=== PATIENT | female | born 1985 | race Caucasian/White ===

== ENCOUNTER 2024-03-13 07:25 | Emergency (ER) | payer BC ==
--- OUTSIDE RECORDS SUMMARY | 2024-03-13 07:29 | XMS REPORT | Continuity of Care Document ---
Author Name Unknown Address [address] [facility] [address] [place] [address] [facility] [address] [facility] [address] [place] [address] Care Team Providers Care Vc++ Developer Name Role Phone Leeanna Espinoza Primary Care Physician [phone] HUMERA DAVIS Attending Clinician Unavailable SWATHI DICKEY Attending Clinician Unavailable LEEANNA LINDER Attending Clinician Unavailable Leeanna Espinoza Attending Clinician [phone] Swathi Dickey MD Attending Clinician [phone] Humera Davis MD Attending Clinician [phone] Lab, Ang - Db Attending Clinician Unavailable Doctor Unassigned, [place] Attending Clinician U JIHAN Reynolds Attending Clinician UnavailJIHAN Gonzalez Attending Clinician UnavailDARSHANA Faria Attending Clinician UnavailDarshana Hdez MD Attending Clinician [phone] HUMERA DAVIS Admitting Clinician Unavailable SWATHI DICKEY Admitting Clinician Unavailable Payers Payer Name Policy Type Policy Number Effective Date Expirati on Date Source [facility] [id number] 2020 00:00:00 Problems Condition Name Condition Details Condition Category Status Onset Date Resolution Date Last Treatment Date Treating Clinician Comments Source S/P breast biopsy, left S/P breast biopsy, left Disease Active 02-05 00:00: [facility] Chest pain, unspecifie d type Chest pain, unspecifie d type Disease Active 2022-11 2 00:00: 00 [facility] Need for immunizati on against influenza Need for immunizati on against influenza Disease Active 2022-11 2 00:00: 00 [facility] Abnormal EKG Abnormal EKG Disease Active 2022-11 00:00: 00 [facility] Dizziness Dizziness Disease Active 2022-11 00:00: 00 [facility] Sesamoidit is of right foot Sesamoidit is of right foot Disease Active 07-02 00:00: 00 [facility] Right foot pain Right foot pain Disease Active 07-02 00:00: 00 [facility] Mild persistent asthma without complicati on Mild persistent asthma without complicati on Disease Active 01-27 00:00: 00 [facility] Need for hepatitis C screening test Need for hepatitis C screening test Disease Active 01-27 00:00: 00 [facility] Acute pain of right shoulder Acute pain of right shoulder Disease Active 2021-11 00:00: 00 [facility] Encounter to establish care Encounter to establish care Disease Active 2021-11 00:00: 00 [facility] Acquired hypothyroi dism Acquired hypothyroi dism Disease Active 2021-11 00:00: 00 [facility] Anxiety Anxiety Disease Active 2021-11 00:00: 00 [facility] Acute pain of right shoulder Acute pain of right shoulder Disease Active 2021-11 00:00: 00 [facility] Allergies, Adverse Reactions, Alerts Allergy Name Allergy Type Status Severity Reaction(s) Onset Date Inactive Date Treating Clinician Comments Source Guaifene sin Propensi ty to adverse reaction s Active Anaphylaxis 2021-11 00:00: 00 [facility] Penicill ins Propensi ty to adverse reaction s Active Hives 2021-11 00:00: 00 [facility] PENICILL INS Drug Class Active Hives 2021-11 00:00: 00 [facility] GUAIFENE SIN DRUG INGREDI Active Anaphylaxis 2021-11 00:00: 00 [facility] ADHESIVE Drug Class Active Unknown-Cmnt 11-11 00:00: 00 [facility] Adhesive Drug Intolera nce Active Unknown - See comments 11-11 00:00: 00 [facility] NO KNOWN ALLERGIE S Drug Class Active [facility] Social History Social Habit Start Date Stop Date Quantity Comments Source Gender identity [facility] intake 2024-02-06 00:00:00 2024-02-06 00:00:00 Ex-drinker (finding) [facility] Alcohol intake 2024-02-06 00:00:00 2024-02-06 00:00:00 Ex-drinker (finding) [facility] History of Social function 2023-07-02 00:00:00 2023-07-02 00:00:00 [facility] Exposure to SARS-CoV-2 (event) 2023-01-17 00:00:00 2023-01-27 07:53:00 Not sure [facility] Alcohol Comment 2022-10-29 00:00:00 2022-10-29 00:00:00 stopped 2016 [facility] Tobacco use and exposure 2022-10-18 00:00:00 2022-10-18 00:00:00 Smokeless tobacco non-user [facility] Sex assigned at 1985 00:00:00 1985 00:00:00 [facility] Smoking Status Start Date Stop Date Source Never smoked tobacco [facility] Tobacco smoking consumption unknown [facility] Medications Ordered Medication Name Filled Medication Name Start Date Stop Date Current Medication? Ordering Clinician Indication Dosage Frequency Signature (SIG) Comments Components Source ONDANSETRON 4 mg tablet 03-12 00:00: 00 Yes [id number] 4mg TAKE ONE (1) TABLET(S) BY MOUTH EVERY EIGHT HOURS NEEDED FOR NAUSEA AND VOMITING. [facility] midodrine 2.5 mg tablet 02-17 00:00: 00 Yes [id number] 2.5mg Take 1 tablet by mouth in the morning and 1 tablet at noon and 1 tablet in the evening. [facility] ondansetron (ZOFRAN) 4 mg tablet 4-10 00:00: 00 02-21 04:59 :00 Yes [id number] 4mg Take 1 tablet by mouth every 8 (eight) hours as needed for Nausea and Vomiting (N/V) for up to 10 days. [facility] topiramate 100 mg tablet 01-29 14:15: 00 Yes 100mg Take 1 tablet by mouth. [facility] QUEtiapine 100 mg tablet 01-29 14:15: 00 Yes 100mg Take 1 tablet by mouth. [facility] fluticasone propionate 110 mcg/actuati on inhaler 01-29 14:15: 00 Yes 1{puff} Inhale 1 Puff. [facility] fexofenadin e 60 mg tablet 01-29 14:15: 00 Yes 60mg Take 1 tablet by mouth. [facility] celecoxib 200 mg capsule 01-29 14:15: 00 Yes 200mg Take 1 capsule by mouth. [facility] buPROPion SR 150 mg SR tablet 01-29 14:15: 00 Yes 150mg Take 1 tablet by mouth. [facility] midodrine 2.5 mg tablet 01-20 00:00: 00 02-17 00:00 :00 No [id number] 2.5mg Take 1 tablet by mouth in the morning and 1 tablet at noon and 1 tablet in the evening. [facility] atogepant (QULIPTA ORAL) 12-03 09:32: 31 12-03 00:00 :00 No 16mg Take 16 mg by mouth in the morning. [facility] QULIPTA 60 mg Tab 1-19 00:00: 00 Yes 1{tbl} Take 1 tablet by mouth in the morning. [facility] atogepant (QULIPTA ORAL) 11-07 09:35: 02 Yes 16mg Take 16 mg by mouth in the morning. [facility] MOUNJARO 7.5 mg/0.5 mL PnIj 11-07 09:34: 08 11-07 00:00 :00 No inject under the skin. [facility] lamoTRIgine 300 mg TR24 11-04 00:00: 00 Yes 1{tbl} Take 1 tablet by mouth in the morning. [facility] VRAYLAR 3 mg Cap 2022-11 00:00: 00 Yes 1{capsu le} Take 1 capsule by mouth in the morning. [facility] MOUNJARO 10 mg/0.5 mL subcutaneou s injection 2022-11 00:00: 00 Yes 10mg inject 10 mg under the skin weekly. [facility] atomoxetine 100 mg capsule 2022-11 00:00: 00 Yes 100mg Take 1 capsule by mouth in the morning. [facility] budesonide- formoteroL (SYMBICORT) 80-4.5 mcg/actuati on inhaler 01-27 00:00: 00 Yes [id number] 2{puff} Inhale 2 Puffs in the morning and 2 Puffs in the evening. [facility] atomoxetine 80 mg capsule 01-25 00:00: 00 11-07 00:00 :00 No [facility] traZODone 50 mg tablet 12-27 00:00: 00 Yes 50mg Take 1 tablet by mouth at bedtime. [facility] triamcinolo ne acetonide (KENALOG) injection 40 mg 11-06 21:00: 00 11-06 19:58 :00 No [id number] 40mg [facility] MOUNJARO 7.5 mg/0.5 mL PnIj 2021-11 08:38: 26 Yes inject under the skin. [facility] MOUNJARO 7.5 mg/0.5 mL PnIj 2021-11 09:14: 01 Yes inject under the skin. [facility] ibuprofen 600 mg tablet 2021-11 00:00: 00 10-17 05:59 :00 No [id number] 600mg Take 1 tablet by mouth every 6 (six) hours as needed for Temp > 38.5 C for up to 14 days. [facility] methylPREDN ISolone (MEDROL, KAREN,) 4 mg tablets 2021-11 00:00: 00 10-08 05:59 :00 No [id number] Take by mouth SEE-INSTRU CTIONS for 5 days. follow package directions [facility] VRAYLAR 1.5 mg Cap 2021-11 00:00: 00 11-07 00:00 :00 No 1{capsu le} Take 1 capsule by mouth daily. [facility] SYMBICORT 80-4.5 mcg/actuati on inhaler 2021-11 00:00: 00 01-27 00:00 :00 No [facility] guanFACINE ER 3 mg tablet 2021-11 00:00: 00 Yes 1{tbl} Take 1 tablet by mouth in the morning. [facility] guanFACINE ER 3 mg tablet 2021-11 00:00: 00 01-27 00:00 :00 No 3mg Take 1 tablet by mouth in the morning. [facility] AJOVY AUTOINJECTO R 225 mg/1.5 mL AtIn 2021-11 00:00: 00 11-07 00:00 :00 No 10mg Take 10 mg by mouth. [facility] lamoTRIgine 150 mg tablet 2021-11 00:00: 00 11-07 00:00 :00 No TAKE TWO (2) TABLET(S) BY MOUTH ONCE A DAY. [facility] propranoloL 10 mg tablet 2021-11 00:00: 00 01-27 00:00 :00 No TAKE 2.5 TABLET(S) BY MOUTH AT BEDTIME. [facility] topiramate 100 mg tablet 2021-11 0 00:00: 00 12-03 00:00 :00 No 100mg Take 100 mg by mouth in the morning and 100 mg in the evening. [facility] levothyroxi ne 100 mcg tablet 08-01 00:00: 00 Yes TAKE ONE (1) TABLET(S) BY MOUTH EVERY MORNING ON AN EMPTY STOMACH. [facility] liothyronin e 5 mcg tablet 08-01 00:00: 00 Yes TAKE ONE (1) TABLET(S) BY MOUTH ONCE A DAY ON AN EMPTY STOMACH. [facility] Immunizations Ordered Immunization Name Filled Immunization Name Date Status Comments Source Influenza Virus Vaccine Quad ID 18-64 YRS 2022-10-29 00:00:00 Completed [facility] Influenza Virus Vaccine Quad ID 18-64 YRS 2022-10-29 00:00:00 Completed [facility] Influenza Virus Vaccine Quad ID 18-64 YRS 2022-10-29 00:00:00 Completed [facility] Influenza Virus Vaccine Quad ID 18-64 YRS 2022-10-29 00:00:00 Completed [facility] Influenza Virus Vaccine Quad ID 18-64 YRS 2022-10-29 00:00:00 Completed [facility] Influenza Virus Vaccine Quad ID 18-64 YRS 2022-10-29 00:00:00 Completed [facility] Influenza Virus Vaccine Quad ID 18-64 YRS 2022-10-29 00:00:00 Completed [facility] Influenza Virus Vaccine Quad ID 18-64 YRS 2022-10-29 00:00:00 Completed [facility] Influenza Virus Vaccine Quad ID 18-64 YRS 2022-10-29 00:00:00 Completed [facility] Influenza Virus Vaccine Quad ID 18-64 YRS 2022-10-29 00:00:00 Completed [facility] Influenza Virus Vaccine Quad ID 18-64 YRS Unknown Completed [facility] SARS-COV-2 COVID-19 VACCINE - (MODERNA) Unknown [facility] Influenza Virus Vaccine Quad IM, Preserv and ABX Free 6 MO-64 YRS (FLUCELVAX) Unknown Completed [facility] Influenza Virus Vaccine Quad IM, Preserv and ABX Free 6 MO-64 YRS (FLUCELVAX) Unknown Completed [facility] TDAP Unknown Completed [facility] Influenza Virus Vaccine Quad ID 18-64 YRS Unknown Completed [facility] SARS-COV-2 COVID-19 VACCINE - (MODERNA) Unknown Completed [facility] Influenza Virus Vaccine Quad IM, Preserv and ABX Free 6 MO-64 YRS (FLUCELVAX) Unknown Completed [facility] Influenza Virus Vaccine Quad IM, Preserv and ABX Free 6 MO-64 YRS (FLUCELVAX) Unknown Completed [facility] TDAP Unknown Completed [facility] Influenza Virus Vaccine Quad ID 18-64 YRS Unknown Completed [facility] SARS-COV-2 COVID-19 VACCINE - (MODERNA) Unknown Completed [facility] Influenza Virus Vaccine Quad IM, Preserv and ABX Free 6 MO-64 YRS (FLUCELVAX) Unknown Completed [facility] Influenza Virus Vaccine Quad IM, Preserv and ABX Free 6 MO-64 YRS (FLUCELVAX) Unknown Completed [facility] TDAP Unknown Completed [facility] Influenza Virus Vaccine Quad ID 18-64 YRS Unknown Completed [facility] SARS-COV-2 COVID-19 VACCINE - (MODERNA) Unknown Completed [facility] Influenza Virus Vaccine Quad IM, Preserv and ABX Free 6 MO-64 YRS (FLUCELVAX) Unknown Completed [facility] Influenza Virus Vaccine Quad IM, Preserv and ABX Free 6 MO-64 YRS (FLUCELVAX) Unknown Completed [facility] TDAP Unknown Completed [facility] Influenza Virus Vaccine Quad ID 18-64 YRS Unknown Completed [facility] SARS-COV-2 COVID-19 VACCINE - (MODERNA) Unknown [facility]pleted [facility] Influenza Virus Vaccine Quad IM, Preserv and ABX Free 6 MO-64 YRS (FLUCELVAX) Unknown Completed [facility] Influenza Virus Vaccine Quad IM, Preserv and ABX Free 6 MO-64 YRS (FLUCELVAX) Unknown Completed [facility] TDAP Unknown Completed [facility] Influenza Virus Vaccine Quad ID 18-64 YRS Unknown Completed [facility] SARS-COV-2 COVID-19 VACCINE - (MODERNA) Unknown Completed [facility] Influenza Virus Vaccine Quad IM, Preserv and ABX Free 6 MO-64 YRS (FLUCELVAX) Unknown Completed [facility] Influenza Virus Vaccine Quad IM, Preserv and ABX Free 6 MO-64 YRS (FLUCELVAX) Unknown Completed [facility] TDAP Unknown Completed [facility] Influenza Virus Vaccine Quad ID 18-64 YRS Unknown Completed [facility] SARS-COV-2 COVID-19 VACCINE - (MODERNA) Unknown Completed [facility] Influenza Virus Vaccine Quad IM, Preserv and ABX Free 6 MO-64 YRS (FLUCELVAX) Unknown Completed [facility] Influenza Virus Vaccine Quad IM, Preserv and ABX Free 6 MO-64 YRS (FLUCELVAX) Unknown Completed [facility] TDAP Unknown Completed [facility] Influenza Virus Vaccine Quad ID 18-64 YRS Unknown Completed [facility] Influenza Virus Vaccine Quad ID 18-64 YRS Unknown Completed [facility] SARS-COV-2 COVID-19 VACCINE - (MODERNA) Unknown Completed [facility] Influenza Virus Vaccine Quad IM, Preserv and ABX Free 6 MO-64 YRS (FLUCELVAX) Unknown Completed [facility] Influenza Virus Vaccine Quad ID 18-64 YRS Unknown Completed [facility] SARS-COV-2 COVID-19 VACCINE - (MODERNA) Unknown Completed [facility] Influenza Virus Vaccine Quad IM, Preserv and ABX Free 6 MO-64 YRS (FLUCELVAX) Unknown Completed [facility] Influenza Virus Vaccine Quad ID 18-64 YRS Unknown Completed [facility] SARS-COV-2 COVID-19 VACCINE - (MODERNA) Unknown Completed [facility] Influenza Virus Vaccine Quad IM, Preserv and ABX Free 6 MO-64 YRS (FLUCELVAX) Unknown Completed [facility] Influenza Virus Vaccine Quad ID 18-64 YRS Unknown Completed [facility] SARS-COV-2 COVID-19 VACCINE - (MODERNA) Unknown Completed [facility] Influenza Virus Vaccine Quad IM, Preserv and ABX Free 6 MO-64 YRS (FLUCELVAX) Unknown Completed [facility] Influenza Virus Vaccine Quad ID 18-64 YRS Unknown Completed [facility] SARS-COV-2 COVID-19 VACCINE - (MODERNA) Unknown Completed [facility] Influenza Virus Vaccine Quad IM, Preserv and ABX Free 6 MO-64 YRS (FLUCELVAX) Unknown Completed [facility] Influenza Virus Vaccine Quad ID 18-64 YRS Unknown Completed [facility] SARS-COV-2 COVID-19 VACCINE - (MODERNA) Unknown Completed [facility] Influenza Virus Vaccine Quad IM, Preserv and ABX Free 6 MO-64 YRS (FLUCELVAX) Unknown Completed [facility] Influenza Virus Vaccine Quad ID 18-64 YRS Unknown Completed [facility] SARS-COV-2 COVID-19 VACCINE - (MODERNA) Unknown Completed [facility] Influenza Virus Vaccine Quad IM, Preserv and ABX Free 6 MO-64 YRS (FLUCELVAX) Unknown Completed [facility] Influenza Virus Vaccine Quad ID 18-64 YRS Unknown Completed [facility] SARS-COV-2 COVID-19 VACCINE - (MODERNA) Unknown Completed [facility] Influenza Virus Vaccine Quad IM, Preserv and ABX Free 6 MO-64 YRS (FLUCELVAX) Unknown Completed [facility] Influenza Virus Vaccine Quad ID 18-64 YRS Unknown Completed [facility] SARS-COV-2 COVID-19 VACCINE - (MODERNA) Unknown Completed [facility] Influenza Virus Vaccine Quad IM, Preserv and ABX Free 6 MO-64 YRS (FLUCELVAX) Unknown Completed [facility] Influenza Virus Vaccine Quad ID 18-64 YRS Unknown Completed [facility] SARS-COV-2 COVID-19 VACCINE - (MODERNA) Unknown Completed [facility] Influenza Virus Vaccine Quad IM, Preserv and ABX Free 6 MO-64 YRS (FLUCELVAX) Unknown Completed [facility] Influenza Virus Vaccine Quad ID 18-64 YRS Unknown Completed [facility] SARS-COV-2 COVID-19 VACCINE - (MODERNA) Unknown Completed [facility] Influenza Virus Vaccine Quad IM, Preserv and ABX Free 6 MO-64 YRS (FLUCELVAX) Unknown Completed [facility] Influenza Virus Vaccine Quad IM, Preserv and ABX Free 6 MO-64 YRS (FLUCELVAX) Unknown Completed [facility] Influenza Virus Vaccine Quad ID 18-64 YRS Unknown Completed [facility] SARS-COV-2 COVID-19 VACCINE - (MODERNA) Unknown Completed [facility] Influenza Virus Vaccine Quad IM, Preserv and ABX Free 6 MO-64 YRS (FLUCELVAX) Unknown Completed [facility] Influenza Virus Vaccine Quad IM, Preserv and ABX Free 6 MO-64 YRS (FLUCELVAX) Unknown Completed [facility] Influenza Virus Vaccine Quad ID 18-64 YRS Unknown Completed [facility] SARS-COV-2 COVID-19 VACCINE - (MODERNA) Unknown Completed [facility] Influenza Virus Vaccine Quad IM, Preserv and ABX Free 6 MO-64 YRS (FLUCELVAX) Unknown Completed [facility] Influenza Virus Vaccine Quad IM, Preserv and ABX Free 6 MO-64 YRS (FLUCELVAX) Unknown Completed [facility] Influenza Virus Vaccine Quad ID 18-64 YRS Unknown Completed [facility] SARS-COV-2 COVID-19 VACCINE - (MODERNA) Unknown Completed [facility] Influenza Virus Vaccine Quad IM, Preserv and ABX Free 6 MO-64 YRS (FLUCELVAX) Unknown Completed [facility] Influenza Virus Vaccine Quad IM, Preserv and ABX Free 6 MO-64 YRS (FLUCELVAX) Unknown Completed [facility] Influenza Virus Vaccine Quad ID 18-64 YRS Unknown Completed [facility] SARS-COV-2 COVID-19 VACCINE - (MODERNA) Unknown Completed [facility] Influenza Virus Vaccine Quad IM, Preserv and ABX Free 6 MO-64 YRS (FLUCELVAX) Unknown Completed [facility] Influenza Virus Vaccine Quad IM, Preserv and ABX Free 6 MO-64 YRS (FLUCELVAX) Unknown Completed [facility] Influenza Virus Vaccine Quad ID 18-64 YRS Unknown Completed [facility] SARS-COV-2 COVID-19 VACCINE - (MODERNA) Unknown Completed [facility] Influenza Virus Vaccine Quad IM, Preserv and ABX Free 6 MO-64 YRS (FLUCELVAX) Unknown Completed [facility] Influenza Virus Vaccine Quad IM, Preserv and ABX Free 6 MO-64 YRS (FLUCELVAX) Unknown Completed [facility] Influenza Virus Vaccine Quad ID 18-64 YRS Unknown Completed [facility] SARS-COV-2 COVID-19 VACCINE - (MODERNA) Unknown Completed [facility] Influenza Virus Vaccine Quad IM, Preserv and ABX Free 6 MO-64 YRS (FLUCELVAX) Unknown Completed [facility] Influenza Virus Vaccine Quad IM, Preserv and ABX Free 6 MO-64 YRS (FLUCELVAX) Unknown Completed [facility] Influenza Virus Vaccine Quad ID 18-64 YRS Unknown Completed [facility] SARS-COV-2 COVID-19 VACCINE - (MODERNA) Unknown Completed [facility] Influenza Virus Vaccine Quad IM, Preserv and ABX Free 6 MO-64 YRS (FLUCELVAX) Unknown Completed [facility] Influenza Virus Vaccine Quad IM, Preserv and ABX Free 6 MO-64 YRS (FLUCELVAX) Unknown Completed [facility] Influenza Virus Vaccine Quad ID 18-64 YRS Unknown Completed [facility] SARS-COV-2 COVID-19 VACCINE - (MODERNA) Unknown Completed [facility] Influenza Virus Vaccine Quad IM, Preserv and ABX Free 6 MO-64 YRS (FLUCELVAX) Unknown Completed [facility] Influenza Virus Vaccine Quad IM, Preserv and ABX Free 6 MO-64 YRS (FLUCELVAX) Unknown Completed [facility] Influenza Virus Vaccine Quad ID 18-64 YRS Unknown Completed [facility] SARS-COV-2 COVID-19 VACCINE - (MODERNA) Unknown Completed [facility] Influenza Virus Vaccine Quad IM, Preserv and ABX Free 6 MO-64 YRS (FLUCELVAX) Unknown Completed [facility] Influenza Virus Vaccine Quad IM, Preserv and ABX Free 6 MO-64 YRS (FLUCELVAX) Unknown Completed [facility] Influenza Virus Vaccine Quad ID 18-64 YRS Unknown Completed [facility] SARS-COV-2 COVID-19 VACCINE - (MODERNA) Unknown Completed [facility] Influenza Virus Vaccine Quad IM, Preserv and ABX Free 6 MO-64 YRS (FLUCELVAX) Unknown Completed [facility] Influenza Virus Vaccine Quad IM, Preserv and ABX Free 6 MO-64 YRS (FLUCELVAX) Unknown Completed [facility] Influenza Virus Vaccine Quad ID 18-64 YRS Unknown Completed [facility] SARS-COV-2 COVID-19 VACCINE - (MODERNA) Unknown Completed [facility] Influenza Virus Vaccine Quad IM, Preserv and ABX Free 6 MO-64 YRS (FLUCELVAX) Unknown Completed [facility] Influenza Virus Vaccine Quad IM, Preserv and ABX Free 6 MO-64 YRS (FLUCELVAX) Unknown Completed [facility] Influenza Virus Vaccine Quad ID 18-64 YRS Unknown Completed [facility] SARS-COV-2 COVID-19 VACCINE - (MODERNA) Unknown Completed [facility] Influenza Virus Vaccine Quad IM, Preserv and ABX Free 6 MO-64 YRS (FLUCELVAX) Unknown Completed [facility] Influenza Virus Vaccine Quad IM, Preserv and ABX Free 6 MO-64 YRS (FLUCELVAX) Unknown Completed [facility] Influenza Virus Vaccine Quad ID 18-64 YRS Unknown Completed [facility] SARS-COV-2 COVID-19 VACCINE - (MODERNA) Unknown [facility] Influenza Virus Vaccine Quad IM, Preserv and ABX Free 6 MO-64 YRS (FLUCELVAX) Unknown Completed [facility] Influenza Virus Vaccine Quad IM, Preserv and ABX Free 6 MO-64 YRS (FLUCELVAX) Unknown Completed [facility] Influenza Virus Vaccine Quad ID 18-64 YRS Unknown Completed [facility] SARS-COV-2 COVID-19 VACCINE - (MODERNA) Unknown Completed [facility] Influenza Virus Vaccine Quad IM, Preserv and ABX Free 6 MO-64 YRS (FLUCELVAX) Unknown Completed [facility] Influenza Virus Vaccine Quad IM, Preserv and ABX Free 6 MO-64 YRS (FLUCELVAX) Unknown Completed [facility] Influenza Virus Vaccine Quad ID 18-64 YRS Unknown Completed [facility] SARS-COV-2 COVID-19 VACCINE - (MODERNA) Unknown Completed [facility] Influenza Virus Vaccine Quad IM, Preserv and ABX Free 6 MO-64 YRS (FLUCELVAX) Unknown Completed [facility] Influenza Virus Vaccine Quad IM, Preserv and ABX Free 6 MO-64 YRS (FLUCELVAX) Unknown Completed [facility] Vital Signs Vital Name Observation Time Observation Value Comments S aleida Systolic blood pressure 2024-02-18 14:10:00 105 mm[Hg] [facility] Diastolic blood pressure 2024-02-18 14:10:00 68 mm[Hg] [facility] Heart rate 2024-02-18 14:10:00 82 /min Unive [facility] Body temperature 2024-02-18 14:10:00 36.44 Lou [facility] Respiratory rate 2024-02-18 14:10:00 18 /min [facility] Body height 2024-02-18 14:10:00 162.6 cm [facility] Body weight 2024-02-18 14:10:00 65.635 kg [facility] BMI 2024-02-18 14:10:00 24.84 kg/m2 [facility] Oxygen saturation in Arterial blood by Pulse oximetry 2024-02-18 14:10:00 100 /min [facility] Systolic blood pressure 2024-02-06 13:03:00 105 mm[Hg] [facility] Diastolic blood pressure 2024-02-06 13:03:00 73 mm[Hg] [facility] Heart rate 2024-02-06 13:03:00 75 /min Unive [facility] Body temperature 2024-02-06 13:03:00 36.67 Lou [facility] Respiratory rate 2024-02-06 13:03:00 18 /min [facility] Body height 2024-02-06 13:03:00 162.6 cm [facility] Body weight 2024-02-06 13:03:00 65.499 kg [facility] BMI 2024-02-06 13:03:00 24.79 kg/m2 [facility] Oxygen saturation in Arterial blood by Pulse oximetry 2024-02-06 13:03:00 100 /min [facility] Systolic blood pressure 2024-01-21 13:59:00 103 mm[Hg] [facility] Diastolic blood pressure 2024-01-21 13:59:00 70 mm[Hg] [facility] Heart rate 2024-01-21 13:59:00 79 /min Unive [facility] Body temperature 2024-01-21 13:59:00 36.56 Lou [facility] Respiratory rate 2024-01-21 13:59:00 18 /min [facility] Body height 2024-01-21 13:59:00 162.6 cm [facility] Body weight 2024-01-21 13:59:00 69.31 kg [facility] BMI 2024-01-21 13:59:00 26.23 kg/m2 [facility] Oxygen saturation in Arterial blood by Pulse oximetry 2024-01-21 13:59:00 100 /min [facility] Systolic blood pressure 2023-12-03 15:19:00 102 mm[Hg] [facility] Diastolic blood pressure 2023-12-03 15:19:00 67 mm[Hg] [facility] Heart rate 2023-12-03 15:19:00 70 /min Unive [facility] Body temperature 2023-12-03 15:19:00 36.83 Lou [facility] Respiratory rate 2023-12-03 15:19:00 16 /min [facility] Body height 2023-12-03 15:19:00 162.6 cm [facility] Body weight 2023-12-03 15:19:00 72.439 kg [facility] BMI 2023-12-03 15:19:00 27.41 kg/m2 [facility] Oxygen saturation in Arterial blood by Pulse oximetry 2023-12-03 15:19:00 100 /min [facility] Systolic blood pressure 2023-11-07 15:31:00 105 mm[Hg] [facility] Diastolic blood pressure 2023-11-07 15:31:00 72 mm[Hg] [facility] Heart rate 2023-11-07 15:31:00 83 /min Unive [facility] Body height 2023-11-07 15:31:00 162.6 cm [facility] Body weight 2023-11-07 15:31:00 74.481 kg [facility] BMI 2023-11-07 15:31:00 28.18 kg/m2 [facility] Oxygen saturation in Arterial blood by Pulse oximetry 2023-11-07 15:31:00 99 /min [facility] Systolic blood pressure 2023-10-22 19:42:00 119 mm[Hg] [facility] Diastolic blood pressure 2023-10-22 19:42:00 77 mm[Hg] [facility] Heart rate 2023-10-22 19:42:00 72 /min Unive [facility] Body temperature 2023-10-22 19:42:00 36.67 Lou [facility] Respiratory rate 2023-10-22 19:42:00 17 /min [facility] Body height 2023-10-22 19:42:00 162.6 cm [facility] Body weight 2023-10-22 19:42:00 74.345 kg [facility] BMI 2023-10-22 19:42:00 28.13 kg/m2 [facility] Oxygen saturation in Arterial blood by Pulse oximetry 2023-10-22 19:42:00 100 /min [facility] Systolic blood pressure 2023-10-03 21:06:00 97 mm[Hg] [facility] Diastolic blood pressure 2023-10-03 21:06:00 68 mm[Hg] [facility] Heart rate 2023-10-03 20:32:00 81 /min [facility] 2023-10-03 20:32:00 162.6 cm [facility] Body weight 2023-10-03 20:32:00 75.342 kg [facility] BMI 2023-10-03 20:32:00 28.51 kg/m2 [facility] Oxygen saturation in Arterial blood by Pulse oximetry 2023-10-03 20:32:00 100 /min [facility] Systolic blood pressure 2023-07-02 13:08:00 104 mm[Hg] [facility] Diastolic blood pressure 2023-07-02 13:08:00 72 mm[Hg] [facility] Heart rate 2023-07-02 13:08:00 76 /min [facility] height 2023-07-02 13:08:00 162.6 cm [facility] weight 2023-07-02 13:08:00 80.468 kg [facility] BMI 2023-07-02 13:08:00 30.45 kg/m2 [facility] Oxygen saturation in Arterial blood by Pulse oximetry 2023-07-02 13:08:00 100 /min [facility] Systolic blood pressure 2023-01-27 13:12:00 103 mm[Hg] [facility] Diastolic blood pressure 2023-01-27 13:12:00 60 mm[Hg] [facility] Heart rate 2023-01-27 13:12:00 83 /min Unive [facility] Body temperature 2023-01-27 13:12:00 37 Lou [facility] Body height 2023-01-27 13:12:00 162.6 cm [facility] Body weight 2023-01-27 13:12:00 93.713 kg [facility] BMI 2023-01-27 13:12:00 35.46 kg/m2 [facility] Oxygen saturation in Arterial blood by Pulse oximetry 2023-01-27 13:12:00 100 /min [facility] Body height 2022-11-06 19:47:00 162.6 cm [facility] Body weight 2022-11-06 19:47:00 102.059 kg [facility] BMI 2022-11-06 19:47:00 38.62 kg/m2 [facility] Systolic blood pressure 2022-10-29 14:38:00 118 mm[Hg] [facility] Diastolic blood pressure 2022-10-29 14:38:00 75 mm[Hg] [facility] Heart rate 2022-10-29 14:38:00 67 /min Unive [facility] Body temperature 2022-10-29 14:38:00 36.78 Lou [facility] Respiratory rate 2022-10-29 14:38:00 18 /min [facility] Body height 2022-10-29 14:38:00 162.6 cm [facility] Body weight 2022-10-29 14:38:00 102.059 kg [facility] BMI 2022-10-29 14:38:00 38.62 kg/m2 [facility] Body height 2022-10-18 15:53:00 162.6 cm [facility] Body weight 2022-10-18 15:53:00 104.327 kg [facility] BMI 2022-10-18 15:53:00 39.48 kg/m2 [facility] Systolic blood pressure 2022-10-02 15:06:00 99 mm[Hg] [facility] Diastolic blood pressure 2022-10-02 15:06:00 68 mm[Hg] [facility] Heart rate 2022-10-02 15:06:00 76 /min [facility] Body temperature 2022-10-02 15:06:00 36.89 Lou [facility] Body height 2022-10-02 15:06:00 162.6 cm [facility] Body weight 2022-10-02 15:06:00 104.327 kg [facility] BMI 2022-10-02 15:06:00 39.48 kg/m2 [facility] Oxygen saturation in Arterial blood by Pulse oximetry 2022-10-02 15:06:00 100 /min [facility] Procedures Procedure Date / Time Performed Performing Clinician Source TDAP VACCINE, >11 YRS, IM 2024-02-06 13:14:10 Ana M Linder [facility] BI NENITA GUIDED CORE BREAST BIOPSY LEFT 2024-01-28 16:47:18 Adum, Humera Riojas [facility] BI DIAGNOSTIC TOMOSYNTHESIS LEFT 2024-01-20 13:35:31 AdumHumera [facility] HEPATITIS B SURFACE ANTIGEN 2023-12-09 14:34:00 AdumHumera [facility] HCV ANTIBODY 2023-12-09 14:34:00 Adum, [facility]jas [facility] HIV 1/2 AG-AB WITH REFLEX 2023-12-09 14:34:00 Adum, Pao Riojas [facility] TRANSTHORACIC ECHO (TTE) COMPLETE 2023-11-21 16:15:45 Swathi Dickey [facility] RHEUMATOID FACTOR 2023-10-03 21:24:00 [facility]inder [facility] C-REACTIVE PROTEIN 2023-10-03 21:24:00 [facility] 2023-10-03 21:24:00 [facility] ANTI-NUCLEAR ANTIBODY SCREEN 2023-10-03 21:24:00 Leeanna Linder [facility] ANTI-NUCLEAR ANTIBODY-PATHOLOGIST INTERPRETATION 2023-10-03 21:24:00 Leeanna Linder [facility] FLU VACC (), 6 MO-64 YRS, .5ML, IM, QUAD (FLUCELVAX) 2023-10-03 21:10:40 Leeanna Linder [facility] ASSIGNMENT OF BENEFITS 2023-10-03 20:13:44 Docto r Unassigned, [place] [facility] REFERRAL- REQUEST/RESPONSE 2022-12-04 06:01:00 Doctor Unassigned, [place] [facility] EXTERNAL PROVIDER RECORDS 2022-11-14 06:01:00 Do ctor Unassigned, [place] [facility] REFERRAL- REQUEST/RESPONSE 2022-10-22 06:01:00 Doctor Unassigned, [place] [facility] Encounters Start Date/Time End Date/Time Encounter Type Admission Type Attending Clinicians Care Facility Care Department Encounter ID Source 2024-08-20 09:20:00 2024-08-20 09:20:00 Outpatient R SWATHI DICKEY [facility] [id number] General acute hospital 2024-03-10 00:00:00 2024-03-12 13:08:24 Refill Leeanna Linder REPLACED BY [facility] 1.2.840.114 350.1.13.10 4.2.7.2.686 [id number] General acute hospital 2024-02-18 09:00:00 2024-02-18 09:21:49 Outpatient R SWATHI DICKEY [facility] [id number] General acute hospital 2024-02-18 09:00:00 2024-02-18 09:21:49 [facility] 1.840.114 350.1.13.10 4.2.7.2.686 [id number] General acute hospital 2024-02-11 00:00:00 2024-02-11 00:00:00 Telephone ConnerLeeanna burrows REPLACED BY [facility] 1.840.114 350.1.13.10 4.2.7.2.686 [id number] General acute hospital 2024-02-06 08:00:00 2024-02-06 08:28:59 Outpatient R LEEANNA LINDER [facility] [id number] General acute hospital 2024-02-06 08:00:00 2024-02-06 08:28:59 Office Visit Leeanna Linder REPLACED BY [facility] 1.84.114 350.1.13.10 4.2.7.2.686 [id number] General acute hospital 2024-01-28 10:10:15 2024-01-28 23:59:00 Outpatient R HUMERA DAVIS [facility] [id number] General acute hospital 2024-01-28 10:10:15 2024-01-28 23:59:00 Hospital Encounter Humera Davis [facility] 1..114 350.1.13.10 4.2.7.2.686 [id number] General acute hospital 2024-01-21 09:00:00 2024-01-21 09:11:07 Outpatient R SWATHI DICKEY [facility] [id number] General acute hospital 2024-01-21 09:00:00 2024-01-21 09:11:07 [facility] 1.2.840.114 350.1.13.10 4.2.7.2.686 [id number] General acute hospital 2024-01-20 07:20:24 2024-01-20 23:59:00 Hospital Encounter AdHumera martinez [facility] 1.2840.114 350.1.13.10 4.2.7.2.686 [id number] General acute hospital 2024-01-20 07:20:15 2024-01-20 23:59:00 Outpatient R HUMERA DAVIS [facility] [id number] General acute hospital 2024-01-20 07:20:15 2024-01-20 23:59:00 Hospital Encounter AdHumera martinez [facility] 1.2840.114 350.1.13.10 4.2.7.2.686 [id number] General acute hospital 2024-01-08 00:00:00 2024-01-08 00:00:00 Telephone AdHumera martinez [facility] 1.2.840.114 350.1.13.10 4.2.7.2.686 [id number] General acute hospital 2023-12-23 00:00:00 2023-12-23 00:00:00 Case Management AdHumera martinez [facility] 1.2.840.114 350.1.13.10 4.2.7.2.686 [id number] General acute hospital 2023-12-19 07:33:59 2023-12-19 23:59:00 Outpatient R ADUM, [facility] [id number] General acute hospital 2023-12-19 07:33:59 2023-12-19 23:59:00 Hospital Encounter Adkassidy [facility] 1.20.114 350.1.13.10 4.2.7.2.686 [id number] General acute hospital 2023-12-09 08:30:00 2023-12-09 09:33:50 Outpatient R ADKASSIDY [facility] [id number] General acute hospital 2023-12-09 08:30:00 2023-12-09 09:33:50 Histopathologist Visit Lab, Guillermo Farmerkassidy, [facility] 1.84.114 350.1.13.10 4.2.7.2.686 [id number] General acute hospital 2023-12-03 09:30:00 2023-12-03 10:27:10 Outpatient R RYAN [facility] [id number] General acute hospital 2023-12-03 09:30:00 2023-12-03 10:27:10 Office Visit Ryan [email or web address] 1.84.114 350.1.13.10 4.2.7.2.686 [id number] General acute hospital 2023-11-23 00:00:00 2023-11-23 00:00:00 [facility] 1.84.114 350.1.13.10 4.2.7.2.686 [id number] General acute hospital 2023-11-21 09:45:50 2023-11-21 23:59:00 [id number] 2023-11-21 09:45:50 2023-11-21 23:59:00 [facility] 1.2.840.114 350.1.13.10 4.2.7.2.686 [id number] General acute hospital 2023-11-07 09:30:00 2023-11-07 09:45:28 Outpatient R CONNERLEEANNA Burrows [facility] [id number] General acute hospital 2023-11-07 09:30:00 2023-11-07 09:45:28 Office Visit ConnerLeeanna burrows REPLACED BY [facility] 1.2.840.114 350.1.13.10 4.2.7.2.686 [id number] General acute hospital 2023-10-22 14:00:00 2023-10-22 14:01:13 [id number] acute [facility] 2023-10-22 14:00:00 2023-10-22 14:01:13 [facility] 1.2.840.114 350.1.13.10 4.2.7.2.686 [id number] General acute hospital 2023-10-10 00:00:00 2023-10-10 00:00:00 Outpatient R CONNERLEEANNA Burrows [facility] [id number] General acute hospital 2023-10-07 00:00:00 2023-10-07 00:00:00 Patient Secure Msg Doctor Unassigned, [place] REPLACED BY [facility] 1.2.840.114 350.1.13.10 4.2.7.2.686 [id number] General acute hospital 2023-10-03 15:15:00 2023-10-03 16:15:05 Outpatient R LEEANNA LINDER [facility] [id number] General acute hospital 2023-10-03 15:15:00 2023-10-03 16:15:05 Histopathologist Visit Lab, Guillermo Temple Lee[facility] Linder [facility] 1.840.114 350.1.13.10 4.2.7.2.686 [id number] General acute hospital 2023-10-03 14:30:00 2023-10-03 15:17:00 Office Visit Leeanna Linder [facility] 1.0.114 350.1.13.10 4.2.7.2.686 [id number] General acute hospital 2023-10-03 00:00:00 2023-10-03 00:00:00 Orders Only Doctor Unassigned, [place] [facility] 1.0.114 350.1.13.10 4.2.7.2.686 [id number] General acute hospital 2023-07-02 08:30:00 2023-07-02 09:01:26 Outpatient R LEEANNA LINDER [facility] [id number] General acute hospital 2023-07-02 08:30:00 2023-07-02 08:45:00 Histopathologist Visit Lab, Guillermo Temple [facility] 1..114 350.1.13.10 4.2.7.2.686 [id number] General acute hospital 2023-07-02 08:00:00 2023-07-02 08:36:22 Office Visit Leeanna Linder [facility] 1.840.114 350.1.13.10 4.2.7.2.686 [id number] General acute hospital 2023-01-27 08:00:00 2023-01-27 10:01:05 Outpatient R LEEANNA LINDER [facility] [id number] General acute hospital 2023-01-27 08:30:00 2023-01-27 08:45:54 Histopathologist Visit Lab, Ang - Db Kailash [facility] 1.2.840.114 350.1.13.10 4.2.7.2.686 [id number] General acute hospital 2023-01-27 08:00:00 2023-01-27 08:30:00 Office Visit Leeanna Linder [facility] 1.2.840.114 350.1.13.10 4.2.7.2.686 [id number] General acute hospital 2023-01-27 00:00:00 2023-01-27 00:00:00 Telephone Kailash Leeanna [facility] 1.2.840.114 350.1.13.10 4.2.7.2.686 [id number] General acute hospital 2022-12-04 00:00:00 2022-12-04 00:00:00 Orders Only Doctor Unassigned, [place] [facility] 1.2840.114 350.1.13.10 4.2.7.2.686 [id number] General acute hospital 2022-11-14 00:00:00 2022-11-14 00:00:00 Orders Only Doctor Unassigned, [place] [facility] 1.2840.114 350.1.13.10 4.2.7.2.686 [id number] General acute hospital 2022-11-06 13:45:00 2022-11-06 15:15:00 Outpatient R DARSHANA ARAGON [facility] [id number] General acute hospital 2022-11-06 13:45:00 2022-11-06 15:15:00 Office Visit Darshana Aragon REPLACED BY [facility] 1.20.114 350.1.13.10 4.2.7.2.686 [id number] General acute hospital 2022-10-31 00:00:00 2022-10-31 00:00:00 Telephone Darshana Aragon REPLACED BY [facility] 1.20.114 350.1.13.10 4.2.7.2.686 [id number] General acute hospital 2022-10-29 08:30:00 2022-10-29 09:04:07 Office Visit Dariankassidy Humera Riojas [facility] 1..114 350.1.13.10 4.2.7.2.686 [id number] General acute hospital 2022-10-29 08:30:00 2022-10-29 09:04:07 Outpatient R HUMERA DAVIS [facility] [id number] General acute hospital 2022-10-22 00:00:00 2022-10-22 00:00:00 Orders Only Doctor Unassigned, [place] [facility] 1..114 350.1.13.10 4.2.7.2.686 [id number] General acute hospital 2022-10-22 00:00:00 2022-10-22 00:00:00 Telephone Darshana Aragon REPLACED BY [facility] 1.2.114 350.1.13.10 4.2.7.2.686 [id number] General acute hospital 2022-10-18 10:00:00 2022-10-18 10:11:27 Outpatient R MARGO DARSHANA [facility] [id number] General acute hospital 2022-10-18 10:00:00 2022-10-18 10:11:27 Office Visit Darshana Aragon REPLACED BY [facility] 1.2.840.114 350.1.13.10 4.2.7.2.686 [id number] General acute hospital 2022-10-02 09:37:52 2022-10-02 23:59:00 Outpatient R LEEANNA LINDER [facility] [id number] General acute hospital 2022-10-02 09:00:00 2022-10-02 09:33:08 [facility] 1.2.840.114 350.1.13.10 4.2.7.2.686 [id number] General acute hospital Results Test Description Test Time Test Comments Results Resul t Comments Source BI NENITA GUIDED CORE BREAST BIOPSY LEFT 2024-01-03 7 18:30:03 Examination:BI NENITA GUIDED CORE BREAST BIOPSY LEFT The procedure was explained to the patient including benefits and alternatives. ?The risks, including but not limited to infection and bleeding, were reviewed and the patient agreed to undergo the procedure, signing the consent form. ?Timeout was performed. History:Patient is a 38 year old year old female and is seen for: ? Focal asymmetry. Comparisons: 01/20/2024 BI DIAGNOSTIC TOMOSYNTHESIS LEFT and 12/19/2023 BI SCREENING TOMOSYNTHESIS BILATERAL Prior exam with following findings: Left: ?There are coarse, round, punctate calcifications in a grouped distribution identified within the left breast retroareolar region, anterior depth, measuring up to 1.3 cm, terminating approximately 1.5 cm posterior to the nipple (reference CC and ML magnification views). CURRENT EXAM: The patient was upright position for the biopsy. ?The area of interest was localized and targeted via lateral approach utilizing digital spot mammography with computer calculation. After antiseptic preparation the skin puncture site was infiltrated with lidocaine. ?Deep local anesthesia about the biopsy site was administered using lidocaine with epinephrine. ?A skin incision was made. ?A 9 gauge Eviva vacuum-assisted automated core biopsy needle was inserted to the computer determined depth, and stereotactic images showed satisfactory relationship of the needle position to the target. ?Tissue cores were obtained. ?Digital specimen radiography showed calcifications within some of the cores. ?A BAR shaped tissue marker clip was deployed through the needle, and the needle was withdrawn. Post biopsy mammogram confirmed the clip at the biopsy site on the postbiopsy LLM images and approximately 5 mm laterally migrated on the postbiopsy LCC images.. Recommendation:Pend ing pathology results - Left tissue sampling of the cores and punctate calcifications in the retroareolar left breast, anterior depth, 1.5 cm posterior to the nipple. ?BI-RADS 4B. ?Bar shaped clip, as above. [facility] BI DIAGNOSTIC TOMOSYNTHESIS LEFT 2024-01-1 9 16:50:12 Examination:BI DIAGNOSTIC TOMOSYNTHESIS LEFT History:Patient is 38 year old and is seen for: ?Inconclusive screening. Computer-aided detection (CAD) utilized. Comparisons: 12/19/2023 BI SCREENING TOMOSYNTHESIS BILATERAL Findings:The left breast is heterogeneously dense, which may obscure small masses. There are coarse, round, punctate calcifications in a grouped distribution identified within the left breast retroareolar region, anterior depth, measuring up to 1.3 cm, terminating approximately 1.5 cm posterior to the nipple (reference CC and ML magnification views). Impression:Left breast calcifications noted above. ?A tomosynthesis guided biopsy with clip placement is recommended. ?These findings and recommendations were discussed with the patient. Note: The patient denies history of procedure/surgery and/or trauma to the left breast. Recommendation:Biop sy is recommended - Left BI-RADS Category: Left 4B - Suspicious Abnormality - Biopsy Should Be Considered - Moderate Suspicion for Malignancy [facility]-PATHOLOGIST [id number] 02:02:15ANA - Pathologist InterpretationANA HEp-2 IIFA Pathologist Interpretation Report Patient Name: Ashley Waller ? : 1985 ??Antinuclear Antibody (MARCI) Test (Anti-Cell Antibodies Test) Indirect I mmunofluorescence Assay on HEp-2 Cells Screening titer: 1:80 (adults, > 18 years old), 1:40 (pediatrics, <= 18 years old)?Result: The antinuclear antibody (MARCI) screen is negative on interpretation. Remarks:This patient has a negative antinuclear antibody (MARCI) screening test. This suggests that the patient likely does not have a systemic autoimmune rheumatic disease that is strongly associa dotty with a positive MARCI, such as systemic lupus erythematosus (MARCI positive in ~95-100%), systemic sclerosis (MARCI positive in ~60-80%), or the following disorders in which MARCI positivity is part of the diagnostic criteria: drug- induced lupus, autoimmune hepatitis, or mixed connective tissue disease. However, the MARCI may be negative in rare cases of systemic lupus erythematosus and systemic sclerosis. The MARCI may also be negative in ~20% of patients presenting with autoimmune hepatitis. Additionally, MARCI positivity is less sensitive in the diagnosis of Sjogren's syndrome (~40-70%) and dermatomy ositis/polymyositis (~30-80%). The MARCI also has limited diagnostic utility in vasculitis, as the MARCI may be negative in this autoimmune condition. A positive MARCI test is not needed for the diagnosis of rheumatoid arthritis, multiple sclerosis, thyroid disease, discoid lupus, or fibromyalgia due to highly variable and/or low MARCI positivity rates in these conditions. ? Therefore, a diagnosis cannotbe based exclusively on MARCI detection and/or pattern and thus should be made via the integration ofpatient history, physical exam findings, and other diagnostic tests as clinically indicated. References: - Julio C Burrows, Hussein R, Shelley J, Gatito JIMENEZ, Zara MENARD. Guidelines for clinical use of th e antinuclear antibody test and tests for specific autoantibodies to nuclear antigens. [place] [employer]. Arch Pathol Lab Med. 2000;124(1):71- 81. doi:10.5858/9900-345-7621-GFCUJORGE- Charu, Aguila Alfonso, Maude DOMINGUEZ, et al. Diagnosis and Management of Autoimmune Hepatitis in Adults and Children: 2019 Practice Guidance and Guidelines From the [place] [employer] Liver Diseases. Hepatology. 2020;72(2):671-722. doi:10.1002/hep.19479- Tree C, Vitor EC, Alessandro Veras. Rational use of blood tests in the evaluation of rheumatic diseases. Mo Med. 2012;109(1):59-63. Maren Roche MD ?10/06/2023 ?8:01 PM10/06/2023 8:02 PM [facility]ANTI-NUCLEAR ANTIBODY [id number] 22:50:29* Test Item Value Reference Range Interpretation Comme nts MARCI (test code = 8807483779) Negative Negative SATNAM (test code = SATNAM) Negative: ?No Anti-Nuclear Antibodies detected by IFA. Positive: ?MARCI IFA screen performed with a 1:80 dilution in adults and a 1:40 dilution in pediatrics. ?A titer is performed and reported separately when the MARCI is "Positive" or when "Cytoplasmic staining is observed." Lab Interpretation (test code = 64043-9) Normal [facility]woodRHEUMATOID [id number] 16:59:41* Test Item Value Reference Range Interpretation Comme nts RF (test code = 1654762756) See_Comment [Automated messa ge] The system which generated this result transmitted reference range: <20 IU/mL. The reference range was not used to interpret this result as normal/abnormal. Lab Interpretation (test code = 43846-5) Normal [facility]woodC-REACTIVE [id number] 16:56:59* Test Item Value Reference Range Interpretation Comme nts CRP (test code = 4378592716) 0.2 mg/dL <=0.8 Lab Interpretation (test cod e = 78011-7) Normal [facility]woodSEDIMENTATION [id number] 02:32:17* Test Item Value Reference Range Interpretation Comme nts ESR (test code = 78107-3) 9 See_Comment [Automated message] The system which generated this result transmitted reference range: 0 - 20 mm/HR. The reference range was not used to interpret this result as normal/abnormal. Lab Interpretation (test code = 02047-9) Normal [facility] Notes Date/Time Note Provider Source 2024-03-11 07:28:28 YHsrAwaq89tFDt6GDfU+i6jdEh4jzMm/3T6 lv9LfIjQ1924NOFHdNY7FIWP9mAst4242-8 07:28:28 Images from the original note were not included.Requested RenewalsName from pharmacy: Ondansetron 4mg TabletWill file in chart as: ONDANSETRON 4 mg tabletSig: TAKE ONE (1) TABLET(S) BY MOUTH EVERY EIGHT HOURS NEEDED FOR NAUSEA AND VOMITING.Disp: 30 tablet (Pharmacy requested: 30 Each) Refills: 0 (Pharmacy requested: Not specified)Start: 03/10/2024lass: eRXFor: NauseaTo pharmacy: Sending Erx refill requestLast ordered: 4 weeks ago (02/11/2024) by Anupama Narvaez refill: 4Rx #: [id number] Ktblae6803/10/2024 06:29 PMProtocol Details This refill cannot be delegatedManual Review: Women's Health providers only allowed to refill requests.Valid encounter within last 12 monthsTo be filled at: [facility] [address] [place] VisitsDate Type Provider Dept02/06/24 Office Visit Leaenna Linder FNP Ang[facility]11/07/23 Office Visit Leeanna Linder FNP [facility]10/03/23 Office Visit Leeanna Linder, MECHANICAL TECHNOLOGIST Ang[facility]07/02/23 Office Visit Leeanna Linder FNP Ang[facility]01/27/23 Office Visit Leeanna Linder, MECHANICAL TECHNOLOGIST Ang[facility] Med10/02/22 Office Visit Leeanna Linder, MECHANICAL TECHNOLOGIST [facility] MedShowing recent visits within past 540 days with a meds authorizing provider and meeting all other requirementsFuture AppointmentsNo visits were found meeting these conditions.Showing future appointments within next 150 days with a meds authorizing provider and meeting all other requirements 75033-6Nhelhlwen encounter OnciUT9242-48-90H02:28:39Telephone encounter NoteTXT1.2.840.761580.1.13.104.2.7. 2.825570|[id number] for patient eepe88310-8EodgMIYCNZXXRFSSvfnfwgrp C-CDA narrative textUTMB13 [address] [id number] 0FMPTETOZBAOGBVUQYTETJK2637-35-88A9 7:28:391.2.840.968569.1.72.3.15|1.2 .840.779255.1.13.104.2.7.2.727879_2 [id number] [facility] 2024-02-12 08:08:02 tTsQL1ylJANzPI6W0pr0iUTXQTaM9jcNfVD YlJ3kPwPp9GB+6iN1pbcXIqm0ZFhr2429-2 02-11T08:08:02 Patient notified via private, detailed voicemail that aparna was sent to [facility] NAJERA.Lashawn Weiss LVN 02/12/2024 8:08 AM 36062-3Ugludictn encounter PyraOM4914-97-78V07:08:30Telephone encounter NoteTXT1.2.840.331799.1.13.104.2.7. 2.580769|[id number] for patient ifpx98740-2QklmVGBJFOMSXGWKepeezrbd C-CDA narrative textUT38 Roberts [id number] 9VKDMTICIFDJCPLDUUOMEBH7551-66-31W6 8:08:301.2.840.469859.1.72.3.15|1.2 .840.552215.1.13.104.2.7.2.727879_2 [id number] [facility] 2024-02-11 12:23:31 CJaUjodlijFWBBUgRyYEtItxUp1pJDiTOIF rfdAm1XYK1v0A1tRu4YKKrgOJ+tbU4940-1 02-10T12:23:31 Please review and advise.Recent VisitsDate Type Provider Dept02/06/24 Office Visit Leeanna Linder, MECHANICAL TECHNOLOGIST [facility]11/07/23 Office Visit Leeanna Linder, MECHANICAL TECHNOLOGIST [facility]10/03/23 Office Visit Leeanna Linder, MECHANICAL TECHNOLOGIST [facility]07/02/23 Office Visit Leeanna Linder, MECHANICAL TECHNOLOGIST [facility]01/27/23 Office Visit Leeanna Linder, MECHANICAL TECHNOLOGIST [facility]10/02/22 Office Visit Leeanna Linder, MECHANICAL TECHNOLOGIST [facility] MedShowing recent visits within past 540 days with a meds authorizing provider and meeting all other requirementsFuture AppointmentsNo visits were found meeting these conditions.Showing future appointments within next 150 days with a meds authorizing provider and meeting all other requirementsCanmirna Weiss LVN 02/11/2024 12:23 PM 14429-8Csulyeukz encounter DmzcRS6701-98-88V01:23:40Telephone encounter NoteTXT1.2.840.112002.1.13.104.2.7. 2.928371|[id number] for patient whlx99189-1UueoJWXKBLMEWNCEnwnbadud C-CDA narrative textUT[address] Xe[id number] 4RJCUGEPPPVQFIYCPCKSSZJ5277-16-52O5 2:23:401.2.840.766904.1.72.3.15|1.2 .840.197131.1.13.104.2.7.2.727879_2 [id number] [facility] 2024-02-11 11:55:32 To57pkLMSKtfCBJmdXCq7F4n3fpC8akLhrL KekpEnvPjT9doKcor9/Md6rYHlDH/1:55:32 Copied from [facility] #[id number]. 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 This was discussed at last appointment on 02/06/2024. She is requesting for this to be sent to the [facility] in . Please advise. 61953-3Legfxhety encounter VejmBY8190-42-81S98:55:41Telephone encounter NoteTXT1.2.840.696333.1.13.104.2.7. 2.054597|[id number] for patient ajsy56839-7CsdiREOJXXUNDUJTiqyqazti C-CDA narrative [id number] R [address] Sf[id number] 9AMJRAHMJPTEJKLBMOGWGVV1579-32-86H9 1:55:411.2.840.824438.1.72.3.15|1.2 .840.293171.1.13.104.2.7.2.727879_2 [id number] Aaliyah Oliver [facility] 2024-01-09 10:03:04 3DqC+Cena3qNKN1ioMnJQAgkHlhhPwhKdQH YKmvcGXD0MWFW4u0flw2JldwK2wCr5603-9 01-08T10:03:04 Called [employer]. Was on hold for 25 minutes.CHRISTIANE THOMPSON RN 01/09/2024 10:03 AM 58099-7Epvzymoob encounter VbtqCO4612-54-40J85:03:35Telephone encounter NoteTXT1.2.840.895897.1.13.104.2.7. 2.344459|[id number] for patient ofhg96999-4VqkoAEEFKNPTDPLSroxqrfot C-CDA narrative [id number] G Cervantes [id number] 6LZJXUDOFVDELEDEYXUKHYY4710-37-32R2 0:03:351.2.840.191533.1.72.3.15|1.2 .840.154497.1.13.104.2.7.2.727879_2 [id number] Christiane Thompson [facility] 2024-01-08 15:32:59 L+9t+eIqZ/s0IxLp8HD0TtkEK7OVS7WSBXC nNu5cJg+COwDVYpHkKuMa6JRLt3Dv2395-8 01-07T15:32:[address] [facility] is calling needing diagnosis codes for upcoming imaging.Ref number [id number]. 81794-8Lsaoigdqt encounter IidtFU5779-61-00L39:34:20Telephone encounter NoteTXT1.2.840.151645.1.13.104.2.7. 2.983857|[id number] for patient xbmo04521-3DzwvNGSZMUABTLPDsknlduxo C-CDA narrative [id number] S Hernandez[address] Nh[id number] 1ZFCTBRPDXMPSMBETYUWDND7700-08-28U2 5:34:201.2.840.709592.1.72.3.15|1.2 .840.195572.1.13.104.2.7.2.727879_2 [id number] Amina Castañeda [facility] 2023-12-09 08:30:00 G9jV03g/p60NQ66vF6Jalw0E8ND9maLytRa pq7Q38nBk3mqIFAth2US1grlnW8vi4812-2 12-09T08:30:00 Images from the original note were not included.Venipuncture collection performed by clean technique on the left anticubitus. Total of 1 attempts were made. Slight pressure and a bandage/dressing were applied to the site(s). The patient experienced no complications. The following specimens were processed according to instructions and sent to [facility] laboratories per lab order on 12/09/2023:LT BLUESST 2RED 1LAVPPTDK GREEN (LiHep)DK GREEN (SodH)GRAYDK BLUE (K2)DK BLUE (S)ACDBlood CultureNIPT/NTD 97815-4Maccz TokeAG8198-18-75I69:34:55Nurse NoteTXT1.2.840.349535.1.13.104.2.7. 2.041320|[id number] for patient xzab10586-8Cnzwj NoteLNNARRATIVEFormatted C-CDA narrative textUT[address] Yh[id number] 1RQFSEJULNCGVVFLPRAHUQT2090-57-99U7 8:34:551.2.840.699361.1.72.3.15|1.2 .840.235616.1.13.104.2.7.2.727879_2 [id number] [facility] 2023-07-02 08:30:00 IfGzHwTNSsnXYJr68IyCV6kkkoTpQXJ1CaH uF9L/kEPmUrWqOohrkohoYEoqKUFG6956-1 07-02T08:30:00 Images from the original note were not included.Venipuncture collection performed by clean technique on the right anticubitus. Total of 1 attempts were made. Slight pressure and a bandage/dressing were applied to the site(s). The patient experienced no complications. The following specimens were processed according to instructions and sent to [facility] laboratories per lab order on 07/02/2023 : LT BLUE SST 2 RED LAV 1 PPT DK GREEN (LiHep) DK GREEN (SodH) PATRICIO DK BLUE (K2) DK BLUE (S) ACD Blood Culture NIPT/NTD Patient has been identified by and name and was provided with cup, antiseptic towelette, and clean catch instructions. 2 urine specimen(s) sent. Unpreserved Urine Culture Aptima tube 2 Other urine 26735-3Vyrno RbduTO9417-33-02M23:48:26Nurse NoteTXT1.2.840.364462.1.13.104.2.7. 2.447484|[id number] for patient kdjb35233-5Itizz NoteLNUT[address] Hj[id number] 2LCDTNQNHBPPNHAGOLUANMY8956-33-97W2 8:48:261.2.840.926738.1.72.3.15|1.2 .840.621263.1.13.104.2.7.2.727879_1 [id number] [facility]
[2024-03-13] MEDS ORDERED: DICYCLOMINE HCL 10 MG CAP ONE (07:53)
[2024-03-13] MEDS ORDERED: KETOROLAC 30 MG/ML INJ ONE (07:53)
[2024-03-13 08:12] LABS: Absolute Basophils 0.1 K/uL (0-0.5); Absolute Eosinophils 0.1 K/uL (0-0.5); Absolute Lymphocytes (CBC) 1.8 K/uL (0.7-4.9); Absolute Monocytes 0.5 K/uL (0.1-1.3); Absolute Neutrophil 5.6 K/uL (1.8-8.0); Basophils % 0.7 % (0-1.3); Eosinophils % 1.1 % (0-4.4); Hematocrit 43.1 % (36.0-45.0); Hemoglobin 14.1 g/dL (12.0-15.0); Lymphocytes % 22.8 % (15.3-44.8); MCHC 32.8 g/dL (32.0-36.0); MCV 91.5 fL (80-100); Monocytes % 5.8 % (3.3-12.3); Neutrophils % 69.6 % (41.7-73.7); Platelets 399 thou/uL (152-406); RBC Red Blood Cell Count 4.71 M/uL (3.86-4.86); Red Cell Distribution Width 13.7 % (12.1-15.2)
[2024-03-13 08:29] LABS: Albumin 4.1 g/dL (3.4-5.0); Albumin/Globulin Ratio 1.1 (1.1-1.8); Anion Gap 6.7 mEq/L (5.0-15.0); Bilirubin Total 0.7 mg/dL (0.2-1.0); Globulin 3.7 g/dL (2.3-3.5); Potassium 3.7 mEq/L (3.5-5.1); Protein, Total 7.8 g/dL (6.4-8.2)
--- NOTE | 2024-03-13 08:46 | RAD REPORT ---
EXAM DESCRIPTION: CTAbdomen Pelvis W Contrast - 03/13/2024 8:39 am CLINICAL HISTORY: Abdominal pain. ABD PAIN COMPARISON: No comparisons TECHNIQUE: Biphasic CT imaging of the abdomen and pelvis was performed with 100 ml non-ionic IV cont rast. All CT scans are performed using dose optimization technique as appropriate and may include automated exposure control or mA/KV adjustment according to patient size. FINDINGS: The lung bases are clear. The liver demonstrates a 6 mm benign cyst right lobe liver. The Spleen, pancreas, adrenal glands and kidneys are within normal limits. No bowel obstruction, free air, free fluid or abscess. Severe stool retention throughout the colon no dotty. The appendix is not identified as a discrete structure, however, no secondary findings of append icitis are identified. No evidence of significant lymphadenopathy. Hardware is present lumbosacral spine. IMPRESSION: Severe constipation noted.
--- NOTE | 2024-03-13 08:51 | ER ---
Nurse's Notes [facility] Name: Ashley Waller Age: 38 yrs Sex: Female : 1985 Arrival Date: 03/13/2024 Time: 07:25 Bed 5 Private MD: Diagnosis: Constipation, unspecified Presentation: 03/13 07:38 Chief complaint: Patient states: Lower abdominal pain since 4 PM yesterday. No BM in 3 ll1 days, tried some stool softeners this morning, no relief. No fever or vomiting. Coronavirus screen: Client denies travel out of the [place] in the last 14 days. At this time, the client does not indicate any symptoms associated with coronavirus-19. Ebola Screen: Patient denies travel to an Ebola-affected area in the 21 days before illness onset. Initial Sepsis Screen: Does the patient meet any 2 criteria? No. Patient's initial sepsis screen is negative. Does the patient have a suspected source of infection? No. Patient's initial sepsis screen is negative. Risk Assessment: Do you want to hurt yourself or someone else? Patient reports no desire to harm self or others. Onset of symptoms was March 12, 2024. 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 - control method, Not ll1 Historical: - Allergies: 07:37 PENICILLINS; ll1 07:37 Mucinex; ll1 07:37 Tape; ll1 - Home Meds: 07:41 Mounjaro 10 mg/0.5 mL subcutaneous Pen Injector [Active]; Lamictal 300 mg Oral ll1 [Active]; Zofran Oral [Active]; levothyroxine 100 mcg capsule [Active]; liothyronine 5 mcg oral tablet [Active]; trazodone 100 mg Oral tablet [Active]; Vraylar 3 mg oral capsule [Active]; midodrine 2.5 mg oral tablet [Active]; atomoxetine 100 mg oral capsule [Active]; - PMHx: 07:37 Hypothyroidism; low BP; ll1 - PSHx: 07:37 tubal ligation; endometrial ablation; ll1 - Immunization history:: Adult Immunizations up to date. - Infectious Disease History:: Denies. - Social history:: Smoking status: Patient denies any tobacco usage or history of. Screenin:40 [facility] ED Fall Risk Assessment (Adult) History of falling in the last 3 months, ll1 including since admission No falls in past 3 months (0 pts) Confusion or Disorientation No (0 pts) Intoxicated or Sedated No (0 pts) Impaired Gait No (0 pts) Mobility Assist Device Used No (0 pt) Altered Elimination No (0 pt) Score/Fall Risk Level 0 - 2 = Low Risk Maintained a safe environment, Hourly rounding (assess needs \T\ fall precautionary measures) done. Abuse screen: Denies threats or abuse. Abuse screen: Denies threats or abuse. Nutritional screening: No deficits noted. Tuberculosis screening: No symptoms or risk factors identified. Assessment: 07:39 General: Appears uncomfortable, Behavior is calm, cooperative, appropriate for age. ll1 Pain: Complains of pain in abdomen Pain currently is 3 out of 10 on a pain scale. Quality of pain is described as aching, crampy, pressure. GI: Bowel sounds present X 4 quads. Abd is soft and non tender X 4 quads. Reports lower abdominal pain, constipation. 08:00 Reassessment: No changes from previously documented assessment. Patient and/or family ll1 updated on plan of care and expected duration. Pain level reassessed. 08:58 Reassessment: No changes from previously documented assessment. Patient and/or family ll1 updated on plan of care and expected duration. Pain level reassessed. Patient is alert, oriented x 3, equal unlabored respirations, skin warm/dry/pink. Patient states feeling better. Vital Signs: 07:38 BP 105 / 80; Pulse 88; Resp 16; Temp 97.5(TE); Pulse Ox 100% on R/A; Weight 63.5 kg; ll1 Height 5 ft. 4 in. ; Pain 3/10; 09:10 BP 104 / 68; Pulse 80; Resp 15; Temp 97.1; Pulse Ox 99% ; Pain 0/10; ll1 07:38 Body Mass Index 24.03 (63.50 kg, 162.56 cm) ll1 07:38 Pain Scale: Adult ll1 09:10 Pain Scale: Adult ll1 ED Course: 07:29 Patient arrived in ED. gm2 07:30 Jcarlos Freed MD is Attending Physician. ec2 07:30 Arm band placed on Patient placed in an exam room, on a stretcher. ll1 07:36 Amanda Turcios, ALESSANDRA is Primary Nurse. ll1 07:39 Triage completed. ll1 07:40 Patient has correct armband on for positive identification. Bed in low position. Call ll1 light in reach. Provided Education on: ER procedures and process. 07:45 Inserted saline lock: 22 gauge in left antecubital area, using aseptic technique. Blood ll1 collected. 08:41 CT Abd/Pelvis - IV Contrast Only In Process Unspecified. EDMS 09:09 No provider procedures requiring assistance completed. IV discontinued, intact, ll1 bleeding controlled, No redness/swelling at site. Pressure dressing applied. Administered Medications: 07:55 Drug: Dicyclomine PO 20 mg PO once Route: PO; ll1 08:50 Follow up: Response: No adverse reaction; Pain is decreased; RASS: Alert and Calm (0) ll1 08:00 Drug: TORadol - Ketorolac IVP 15 mg IVP once Route: IVP; Site: left antecubital; ll1 08:55 Follow up: Response: No adverse reaction; Pain is decreased; RASS: Alert and Calm (0) ll1 09:09 Drug: Milk of Magnesia PO Suspension 400 mg/5 mL 30 ml PO once Route: PO; ll1 09:11 Follow up: Response: No adverse reaction ll1 Medication: 07:40 VIS not applicable for this client. ll1 Outcome: 08:50 Discharge ordered by . ec2 09:10 Patient left the ED. ll1 09:10 Discharged to home ambulatory, ll1 09:10 Condition: stable 09:10 Discharge instructions given to patient, Instructed on discharge instructions, follow up and referral plans. medication usage, Demonstrated understanding of instructions, follow-up care, medications, Prescriptions given X 1, Signatures: Dispatcher [employer] Amanda Rich, ALESSANDRA RN ll1 Jcarlos Freed MD MD ec2 Samantha Murguia 2 Corrections: (The following items were deleted from the chart) 09:18 07:39 GI: Reports lower abdominal pain, constipation, ll1 ll1
--- NOTE | 2024-03-13 08:51 | EDPHYS ---
Physician Documentation [facility] Name: Ashley Waller Age: 38 yrs Sex: Female : 1985 Arrival Date: 03/13/2024 Time: 07:25 Bed 5 Private MD: ED Physician Jcarlos Freed HPI: 03/13 07:45 This 38 yrs old Female presents to ER via Ambulatory with complaints of ec2 Abdominal Pain. 07:45 Patient arrives today due to concern for generalized abdominal pain along with ec2 constipation. Patient reports she has not had a bowel movement in 3 days. Patient reports that she is on Mounjaro. Patient reports some occasional nausea, no vomiting. Denies any diarrhea symptoms. Patient reports no fevers or chills, no urinary complaints. History of tubal ligation, endometriosis ablation as well as spinal fusion with an anterior approach.. 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 - control method, Not ll1 Historical: - Allergies: 07:37 PENICILLINS; ll1 07:37 Mucinex; ll1 07:37 Tape; ll1 - Home Meds: 07:41 Mounjaro 10 mg/0.5 mL subcutaneous Pen Injector [Active]; Lamictal 300 mg Oral ll1 [Active]; Zofran Oral [Active]; levothyroxine 100 mcg capsule [Active]; liothyronine 5 mcg oral tablet [Active]; trazodone 100 mg Oral tablet [Active]; Vraylar 3 mg oral capsule [Active]; midodrine 2.5 mg oral tablet [Active]; atomoxetine 100 mg oral capsule [Active]; - PMHx: 07:37 Hypothyroidism; low BP; ll1 - PSHx: 07:37 tubal ligation; endometrial ablation; ll1 - Immunization history:: Adult Immunizations up to date. - Infectious Disease History:: Denies. - Social history:: Smoking status: Patient denies any tobacco usage or history of. ROS: 07:45 Constitutional: as per hpi ec2 Exam: 07:45 Constitutional: GEN: NAD Head: atraumatic Eyes: EOMI Ears: External ears are ec2 normal. CV: regular rate LUNGS: no respiratory distress ABD: non-distended, soft, tender in the lower abdomen, not guarding, not rigid. SKIN: no evidence of rashes MSK: no evidence of trauma NEURO: moves all extremities equally Vital Signs: 07:38 BP 105 / 80; Pulse 88; Resp 16; Temp 97.5(TE); Pulse Ox 100% on R/A; Weight 63.5 kg; ll1 Height 5 ft. 4 in. ; Pain 3/10; 09:10 BP 104 / 68; Pulse 80; Resp 15; Temp 97.1; Pulse Ox 99% ; Pain 0/10; ll1 07:38 Body Mass Index 24.03 (63.50 kg, 162.56 cm) ll1 07:38 Pain Scale: Adult ll1 09:10 Pain Scale: Adult ll1 MDM: 07:30 Patient medically screened. ec2 07:45 Data reviewed: vital signs. ec2 08:50 ED course: CBC and BMP are reassuring. CT imaging shows severe constipation. Will treat ec2 the patient's constipation and have the patient follow-up with a primary care doctor. Return precautions given. . 03/13 07:45 Order name: CBC with Diff; Complete Time: 08:49 ec2 03/13 07:45 Order name: CMP; Complete Time: 08:49 ec2 03/13 07:45 Order name: Lipase; Complete Time: 08:49 ec2 03/13 07:45 Order name: CT Abd/Pelvis - IV Contrast Only; Complete Time: 08:49 ec2 03/13 07:45 Order name: IV Saline Lock; Complete Time: 07:45 ec2 03/13 07:45 Order name: Labs collected and sent; Complete Time: 07:45 ec2 Administered Medications: 07:55 Drug: Dicyclomine PO 20 mg PO once Route: PO; 1 08:50 Follow up: Response: No adverse reaction; Pain is decreased; RASS: Alert and Calm (0) ll1 08:00 Drug: TORadol - Ketorolac IVP 15 mg IVP once Route: IVP; Site: left antecubital; ll1 08:55 Follow up: Response: No adverse reaction; Pain is decreased; RASS: Alert and Calm (0) ll1 09:09 Drug: Milk of Magnesia PO Suspension 400 mg/5 mL 30 ml PO once Route: PO; 1 09:11 Follow up: Response: No adverse reaction [facility] Disposition Summary: 05/11/24 08:50 Discharge Ordered Notes: Location: Home ec2 Condition: Stable ec2 Diagnosis - Constipation, unspecified ec2 Followup: ec2 - With: Private Physician - When: - Reason: Recheck today's complaints Discharge Instructions: - Discharge Summary Sheet ec2 - Constipation, Adult, [id number] ec2 Forms: - Medication Reconciliation Form ec2 - Antibiotic Education ec2 - Prescription Opioid Use ec2 - Patient Portal Instructions ec2 - Leadership Thank You Letter ec2 Prescriptions: - Lactulose 10 gram/15 mL Oral Solution - take 30 milliliters ORAL route once daily; 300 milliliter; Refills: 0, Product ec2 Selection Permitted Signatures: Dispatcher [employer] Amanda Rich RN RN ll1 Jcarlos Freed MD MD ec2 Corrections: (The following items were deleted from the chart) 07:45 07:45 CBC+H.LAB.BRZ ordered. EDMS EDMS 07:45 07:45 COMPREHENSIVE METABOLIC PANEL+C.LAB.BRZ ordered. EDMS EDMS 07:45 07:45 LIPASE+C.LAB.BRZ ordered. EDMS EDMS 07:45 07:45 Test, Urine+UC.LAB.BRZ ordered. EDMS EDMS
[2024-03-13] MEDS ORDERED: MAGNESIUM HYDROXIDE 8% 30 ML ONE (09:00)
[2024-03-13 09:17] VITALS: BP 105/80; TEMP 97.5; O2SAT 100
== END 2024-03-13 09:10 | disposition home or self-care (01) ==
LOC: ER 07:25
DX: K59.00 Constipation, unspecified (principal); E03.9 Hypothyroidism, unspecified; Z88.0 Allergy status to penicillin; Z88.8 Allergy status to other drugs, medicaments and biological substances; Z91.048 Other nonmedicinal substance allergy status
CPT/HCPCS: 85025; 36415; 83690; 80053; 74177; 96374; 99284; Q9967